=== PATIENT | female | born 1990 | race Caucasian/White ===

== ENCOUNTER → 2017-08-12 | Outpatient (CLI) | payer OTHER ==
[2017-08-12 11:09] LABS: URINE APPEARANCE CLEAR (CLEAR); URINE BILIRUBIN NEG (NEG); URINE COLOR YELLOW; URINE NITRITE NEG (NEG); URINE PH 8.5 (4.5-7.5); URINE SPECIFIC GRAVITY 1.012 (1.000-1.030); UROBILINOGEN NEG (NEG)
[2017-08-12 11:13] LABS: MANUAL MICROSCOPIC REQUIRED? NO; REVIEW REQ? NO
== END | disposition home or self-care (01) ==
LOC: C.LABSPEC 10:48
PROVIDERS: ATTEND Obstetrics & Gynecology
DX: Z34.90 Encounter for supervision of normal pregnancy, unspecified, unspecified trimester (principal)

== ENCOUNTER → 2017-08-15 | Outpatient (CLI) | payer OTHER ==
[2017-08-15 09:52] LABS: HEMATOCRIT 36.8 % (37-47)
[2017-08-17 02:35] LABS: CHLAMYDIA TRACH RNA*** NOT DETECTED (NOT DETECTED); GC (NEIS GONORRHOEAE)RNA** NOT DETECTED (NOT DETECTED)
== END | disposition home or self-care (01) ==
LOC: C.LAB1850 09:13
PROVIDERS: ATTEND Obstetrics & Gynecology
DX: O09.291 Supervision of pregnancy with other poor reproductive or obstetric history, first trimester (principal)

== ENCOUNTER → 2017-10-10 | Outpatient (CLI) | payer OTHER | END | disposition home or self-care (01) | LOC: C.LAB1850 09:30 | PROVIDERS: ATTEND Obstetrics & Gynecology | DX: O09.292 Supervision of pregnancy with other poor reproductive or obstetric history, second trimester (principal) ==

== ENCOUNTER → 2017-12-27 | Outpatient (CLI) | payer OTHER ==
[2017-12-27 12:16] LABS: HEMATOCRIT 34.5 % (37-47); HEMOGLOBIN 11.6 g/dL (12.0-16.0)
== END | disposition home or self-care (01) ==
LOC: C.LAB1850 10:39
PROVIDERS: ATTEND Obstetrics & Gynecology
DX: O09.293 Supervision of pregnancy with other poor reproductive or obstetric history, third trimester (principal)

== ENCOUNTER → 2018-05-09 | Outpatient (CLI) | payer OTHER ==
[~2018-05-09] MED LIST: CALC500C70 PO; PRENTAB26 PO
== END | disposition home or self-care (01) ==
LOC: C.PAPS 12:56
PROVIDERS: ATTEND Obstetrics & Gynecology
DX: Z39.2 Encounter for routine postpartum follow-up (principal)

== ENCOUNTER 2020-01-14 08:54 | Inpatient (IN) ==
[2020-01-28] MEDS ORDERED: CEFAZOLIN 2000MG 2,000 MG/15 ML SYR IV SCH (06:00)
[2020-01-28] MEDS ORDERED: CITRIC ACID/SODIUM CITRATE 15 ML UDC PO SCH (06:00)
[2020-01-28] MEDS ORDERED: LACTATED RINGER'S 1,000 ML IV SCH ×2 (08:15→08:30)
[2020-01-28] MEDS ORDERED: SENNA 8.6 MG TAB PO PRN (08:24)
[2020-01-28] MEDS ORDERED: BENZOCAINE 20% AER SPR 82.5 GM CAN EXT PRN (08:24)
[2020-01-28] MEDS ORDERED: SUPERCREAM 0.870% 15 GM JAR EXT PRN (08:24)
[2020-01-28] MEDS ORDERED: HYDROCORTISONE ACETATE 25 MG SUPP PR PRN (08:24)
[2020-01-28] MEDS ORDERED: DIPHTHERIA/TETANUS/PERTUSSIS 0.5 ML SYR/VIAL IM ONE (08:24)
[2020-01-28 08:29] LABS: Basophils # (auto) 0.02 K/uL (0-0.2); Basophils % (auto) 0.2 %; Eosinophils # (auto) 0.03 K/uL (0-0.5); Eosinophils % (auto) 0.3 %; Hematocrit (blood only) 34.1 % (37-47); Hemoglobin 11.4 g/dL (12.0-16.0); Immature Granulocytes # (auto) 0.01 K/uL (0.00-0.02); Immature Granulocytes % (auto) 0.1 %; Lymphocytes # (auto) 2.02 K/uL (1.2-3.4); Lymphocytes % (auto) 23.5 %; Mean Corpuscular Hemoglobin 29.7 pg (25-34); Mean Corpuscular Volume 88.8 fL (80-100); Mean Platelet Volume 11.5 fL (7.4-10.4); Monocytes # (auto) 0.68 K/uL (0.11-0.59); Monocytes % (auto) 7.9 %; Neutrophils # (auto) 5.84 K/uL (1.4-6.5); Platelet Count 161 K/uL (130-400); RDW Standard Deviation 45.9 fL (36.4-46.3); Red Blood Count 3.84 M/uL (4.2-5.4)
[2020-01-28 08:58] LABS: Mean Corpuscular Hgb Conc 33.4 g/dL (32-36)
--- NOTE | 2020-01-28 09:15 | History & Physical Bridge Note ---
Date of Service January 28, 2020 History & Physical Bridge Note I have examined the patient, reviewed the History & Physical and in the interval since the performance of the History & Physical I have noted the following changes of clinical significance: no changes noted baby taylor breech on bedside us this am, proceed with c/s
[2020-01-28] MEDS ORDERED: MoRPHine SULFATE PF 1 MG/ML 10 ML AMP/VIAL INT SPINAL ONE (09:16)
[2020-01-28] MEDS ORDERED: MoRPHine SULFATE 2 MG/ML CARP IV PRN (09:16)
[2020-01-28] MEDS ORDERED: ONDANSETRON INJ 2 MG/ML 2 ML VIAL IV PRN (09:16)
[2020-01-28] MEDS ORDERED: ePHEDrine sulfate 50 MG/ML AMP IV PRN (09:16)
[2020-01-28] MEDS ORDERED: NALOXONE HCL 0.4 MG/1 ML VIAL/CARP IV PRN (09:16)
[2020-01-28] MEDS ORDERED: METOCLOPRAMIDE HCL 20 MG in SODIUM CHLORIDE 0.9% 50 ML IV PRN (09:16)
[2020-01-28] MEDS ORDERED: NALOXONE HCL 1 MG in SODIUM CHLORIDE 0.9% 1000ML 1,000 ML IV PRN (09:16)
[2020-01-28] MEDS ORDERED: NALOXONE HCL 0.08 MG in SYRINGE 1.8 ML IV PRN (09:16)
[2020-01-28] MEDS ORDERED: MEPERIDINE HCL 25 MG/ML CARP/VIAL IV PRN (09:16)
[2020-01-28] MEDS ORDERED: LACTATED RINGER'S 500 ML IV PRN (09:16)
[2020-01-28] MEDS ORDERED: PROMETHAZINE HCL 25 MG in SODIUM CHLORIDE 0.9% 50 ML IV PRN (09:16)
[2020-01-28] MEDS ORDERED: SODIUM CHLORIDE 0.9% 1000ML 1,000 ML IV SCH (09:30)
[2020-01-28] MEDS ORDERED: DC INTRASPINAL MORPHINE SCH (09:30)
[2020-01-28] MEDS ORDERED: NO NARCOTICS OR SEDATIVES SCH (09:30)
[2020-01-28] MEDS ORDERED: OXYTOCIN 10 UNITS/ML VIAL ONE (10:20)
[2020-01-28] MEDS ORDERED: ONDANSETRON INJ 2 MG/ML 2 ML VIAL ONE (10:27)
[2020-01-28] MEDS ORDERED: DiphenhydrAMINE HCL 50 MG/ML VIAL ONE (10:34)
--- NOTE | 2020-01-28 10:41 | Post Operative Brief Note ---
PG Immediate Post Op with CF Date of Surgery January 28, 2020 Pre & Post Diagnosis Operation Date: 01/28/20 09:10 Pre-Op Diagnosis: 39 weeks gestation, persistent breech presentation, failed external cephalic version Post-Op Diagnosis: same I identified the patient and participated in the time-out.: Yes Procedure Operation Date: 01/28/20 09:10 Actual Procedures Primary Low Transverse Section Surgeon Quin Gastelum MD, FACOG French Drawer Dr. Pineda Estimated Blood Loss 700 Findings Consistent with Post-Op Diagnosis (viable female infant, normal uterus, tubes and ovaries bilaterally) Fluids 2000 Specimens Specimen Description: cord blood placenta--hold Drains Davis Catheter Anesthesia Type Spinal Complications none Disposition Accompanied Patient To Recovery: No Disposition: L&D
--- NOTE | 2020-01-28 10:52 | Operative Report ---
PG Post Operative Report Pre & Post Diagnosis Operation Date: 01/28/20 09:10 Pre-Op Diagnosis: 39 week intrauterine Persistent breech presentation Failed external cephalic version Post-Op Diagnosis: same I identified the patient and participated in the time-out.: Yes Procedure Operation Date: 01/28/20 09:10 Actual Procedures Primary Low Transverse Section Surgeon Quin Gastelum MD, FACOG Member Of Technical Staff Dr. Pineda Estimated Blood Loss 700 Findings Consistent with Post-Op Diagnosis (viable female infant, apgars 8,9. normal uterus tubes and ovaries bilaterally. ) Specimens cord blood Drains deras Anesthesia Type Spinal Complications none Disposition Accompanied Patient To Recovery: No Disposition: L&D Indications 29yo at 39wks ega presented to L&D for planned section for above listed indications. Consents were signed and patient was ready to proceed. Description of Procedure The patient was taken to the operating room and identified. After adequate anesthesia was obtained, she was placed in the supine position with a leftward tilt on the operating table and prepped and draped in the usual sterile fashion. A deras catheter had already been placed. The knife was used to create a Pfannensteil skin incision that was carried down to the underlying layer of fascia. The fascia was nicked in the midline and this opening was extended laterally using Mota scissors. Richa clamps were placed on the superior and inferior aspect of the fascial incision tenting it upward and the underlying rectus muscles were dissected off the overlying fascia both sharply and bluntly using Mota scissors. The rectus muscles were bluntly in the midline. The peritoneal cavity was bluntly entered into. This opening was stretched. The bladder blade was placed. The vesicouterine peritoneum was elevated and opened up into and the bladder flap was created digitally and bladder blade was replaced. The knife was used to create a hysterotomy and this opening was stretched. The operators hand was placed through the hysterotomy and the bladder blade was removed. The buttocks was elevated and with fundal pressure the buttocks was delivered. The body was delivered to the level of the shoulders and the arms were swept across the anterior chest. The head was flexed and delivered. The mouth and nose were bulb suctioned and baby was dried. The cord was clamped after 30sec of life per maternal request and then cut and the infant was handed off to the awaiting pediatricians. Cord blood was obtained. The placenta was manually expressed. The uterus was exteriorized and cleared of all clots and debris. Dilute IV Pitocin was begun. The uterine tone was improving. The hysterotomy was closed in a running interlocking fashion using 0 Vicryl followed by a second imbricating layer of 0 Vicryl. Bleeding at the midline and to the right hysterotomy was noted and 2 figure of eight sutures of 2-0 vicryl were placed for excellent hemostasis. The hysterotomy was hemostatic. The pelvis was irrigated. The uterus was returned to the abdomen. The gutters were cleared of all clots and debris. The hysterotomy was reinspected and noted to be hemostatic. The fascia was then closed in running fashion using 0 Vicryl. The subcutaneous fat was copiously irrigated and reapproximated using 2-0 chromic. The skin was closed in a subcuticular fashion using 4-0 Vicryl. At this point the procedure was terminated. The patient was transferred to the recovery room in stable condition. All sponge, lap and needle counts are correct x2. I attest to the content of the Intraoperative Record and any orders documented therein. Any exceptions are noted below.
--- NOTE | 2020-01-28 11:31 | Anesthesiology Progress Note ---
Date of Service January 28, 2020 Anesthesia Post Procedure Vital Signs Vital Signs: Temp Pulse Resp BP Pulse Ox 01/28/20 11:28 69 100 01/28/20 11:25 70 18 114/57 L 01/28/20 11:23 78 100 01/28/20 11:18 67 100 01/28/20 11:15 18 01/28/20 11:14 74 124/66 01/28/20 11:13 75 100 01/28/20 11:08 74 100 01/28/20 11:05 20 01/28/20 11:04 69 116/64 01/28/20 11:03 73 100 01/28/20 10:58 74 99 01/28/20 10:55 18 01/28/20 10:54 95 H 119/63 01/28/20 10:53 79 98 01/28/20 10:48 100 H 97 01/28/20 10:45 36.5 C 01/28/20 10:44 94 H 120/60 01/28/20 10:43 95 H 97 01/28/20 07:50 36.8 C 01/28/20 07:04 36.8 C 01/28/20 07:03 74 121/75 Pain Intensity Lower Abdomen: Pain Intensity: 6 Transfer of Care Handoff Completed per policy Notes Mental Status: alert / awake / arousable Patient Amnestic to Procedure: Yes Nausea / Vomiting: adequately controlled Pain: adequately controlled Airway Patency, RR, SpO2: stable & adequate BP & HR: stable & adequate Hydration State: stable & adequate Neuraxial Anesthesia: was administered and sensory block is resolving Anesthetic Complications: no major complications apparent and Pt Satisfied with anesthetic care
[2020-01-28] MEDS ORDERED: fentaNYL citrate 100 MCG/2 ML VIAL IV ONE (12:20)
[2020-01-28] MEDS ORDERED: MoRPHine SULFATE PF 1 MG/ML 10 ML AMP/VIAL EPI ONE (12:20)
[2020-01-28] MEDS ORDERED: OXYTOCIN 10 UNITS/ML VIAL IV ONE ×2 (12:20)
[2020-01-28] MEDS ORDERED: METOCLOPRAMIDE HCL INJ 5 MG/ML 2 ML VIAL IV ONE (12:20)
[2020-01-28] MEDS ORDERED: ePHEDrine sulfate 50 MG/ML AMP IV ONE (12:20)
[2020-01-28] MEDS ORDERED: ONDANSETRON INJ 2 MG/ML 2 ML VIAL IV ONE (12:20)
[2020-01-28] MEDS ORDERED: PHENYLEPHRINE HCL 10 MG/ML VIAL IV ONE (12:20)
[2020-01-28] MEDS: KETOROLAC 30 MG/ML VIAL IV PRN ×2 (12:24→18:06)
[2020-01-28] MEDS: OXYTOCIN 20 UNITS in LACTATED RINGER'S 1,000 ML IV SCH ×2 (13:42→22:14)
[2020-01-28] MEDS: SIMETHICONE 80 MG CHEW PO SCH ×3 (14:05→20:40)
[2020-01-28] MEDS: DiphenhydrAMINE HCL 50 MG/ML VIAL IV PRN ×2 (17:05→23:44)
[2020-01-28] MEDS: NALBUPHINE HCL INJ 10 MG/ML AMP IV PRN ×2 (18:59→19:28)
[2020-01-28] MEDS: DOCUSATE SODIUM 100 MG CAP PO SCH (20:40)
[2020-01-29] MEDS: KETOROLAC 30 MG/ML VIAL IV PRN (02:12)
[2020-01-29] MEDS: NALBUPHINE HCL INJ 10 MG/ML AMP IV PRN (02:13)
[2020-01-29] MEDS ORDERED: DiphenhydrAMINE HCL 50 MG/ML VIAL IV PRN (03:16)
[2020-01-29] MEDS ORDERED: MEPERIDINE HCL 50 MG/ML CARP IV PRN (03:16)
[2020-01-29] MEDS ORDERED: ONDANSETRON INJ 2 MG/ML 2 ML VIAL IV PRN (03:16)
[2020-01-29] MEDS ORDERED: KETOROLAC 30 MG/ML VIAL IV PRN (03:16)
[2020-01-29] MEDS ORDERED: PROMETHAZINE HCL 25 MG in SODIUM CHLORIDE 0.9% 50 ML IV PRN (03:16)
[2020-01-29 05:38] LABS: Basophils # (auto) 0.01 K/uL (0-0.2); Basophils % (auto) 0.1 %; Eosinophils # (auto) 0.01 K/uL (0-0.5); Eosinophils % (auto) 0.1 %; Hemoglobin 11.3 g/dL (12.0-16.0); Immature Granulocytes # (auto) 0.05 K/uL (0.00-0.02); Immature Granulocytes % (auto) 0.4 %; Lymphocytes # (auto) 1.62 K/uL (1.2-3.4); Lymphocytes % (auto) 11.4 %; Mean Corpuscular Hemoglobin 29.5 pg (25-34); Mean Corpuscular Hgb Conc 34.2 g/dL (32-36); Mean Corpuscular Volume 86.2 fL (80-100); Monocytes # (auto) 0.92 K/uL (0.11-0.59); Monocytes % (auto) 6.5 %; Neutrophils # (auto) 11.54 K/uL (1.4-6.5); Neutrophils % (auto) 81.5 %; Platelet Count 145 K/uL (130-400); RDW Coefficient of Variation 13.4 % (11.5-14.5); RDW Standard Deviation 42.3 fL (36.4-46.3); Red Blood Count 3.83 M/uL (4.2-5.4); White Blood Count 14.15 K/uL (4.8-10.8)
--- NOTE | 2020-01-29 07:49 | Obstetrical Progress Note ---
Date of Service January 29, 2020 Assessment & Plan (1) S/P primary low transverse : stable, hgb noted. routine care. adv diet, ambulate, support breast feeding. oral pain meds for pain control. Day #:: 1 Subjective Ambulation: ambulating normally Voiding: no voiding problems Passing Gas:: Yes Diet Tolerance:: clear liquids Lochia:: Small Feeding Type:: breast feeding having some pain this am, awaiting oral pain meds. Physical Exam Constitutional WD/WN, vitals as above Respiratory normal respiratory effort, lungs clear to auscultation Cardiovascular Rate/Rhythm: regular rate and regular rhythm Gastrointestinal (Abdomen) Inspection/Auscultation: abdomen normal to inspection, normal bowel sounds and + abdominal surgical incision (c/d/i) Percussion/Palpation: + abdomen tender (appropriate) and abdomen soft Fundus firm 1cm down Musculoskeletal nt calves no edema Neurologic grossly normal Psychiatric A+Ox3, euthymic affect Results & Data Vital Signs (Past 12 Hours) Vital Signs Temp Pulse Resp BP Pulse Ox Pulse Ox 01/29/20 04:10 98.1 F 85 18 117/71 97 01/29/20 03:10 20 100 01/29/20 02:30 20 100 01/29/20 01:30 16 97 01/29/20 00:30 16 98 01/28/20 23:30 98.6 F 96 H 20 126/78 100 100 01/28/20 22:32 18 97 01/28/20 21:45 18 97 01/28/20 20:15 98.6 F 74 20 129/67 97 99
[2020-01-29] MEDS ORDERED: ACETAMINOPHEN 325 MG TAB PO PRN (07:50)
[2020-01-29] MEDS: DOCUSATE SODIUM 100 MG CAP PO SCH ×2 (07:52→20:18)
[2020-01-29] MEDS: OXYCODONE/ACETAMINOPHEN 5mg/325mg TAB PO PRN ×4 (07:52→20:18)
[2020-01-29] MEDS: PRENATAL VITAMIN 1 TAB PO SCH (07:52)
[2020-01-29] MEDS: SIMETHICONE 80 MG CHEW PO SCH ×4 (07:52→20:18)
[2020-01-29] MEDS: FERROUS SULFATE 325 MG TAB PO SCH (07:52)
[2020-01-29] MEDS: IBUPROFEN 600 MG TAB PO PRN ×4 (07:52→20:18)
--- NOTE | 2020-01-29 14:39 | Electrocardiogram Report ---
Test Reason : Blood Pressure : / mmHG Vent. Rate : 087 BPM Atrial Rate : 087 BPM P-R Int : 152 ms QRS Dur : 078 ms QT Int : 356 ms P-R-T Axes : 078 072 057 degrees QTc Int : 428 ms Poor data quality, interpretation may be adversely affected Normal sinus rhythm Normal ECG No previous ECGs available Confirmed by Maximilian Velazquez ([id number]) on 01/29/2020 2:39:07 PM Referred By: Quin Gastelum Confirmed By:Maximilian Velazquez
[2020-01-30] MEDS: OXYCODONE/ACETAMINOPHEN 5mg/325mg TAB PO PRN ×3 (00:16→09:55)
[2020-01-30] MEDS: IBUPROFEN 600 MG TAB PO PRN ×3 (00:16→09:56)
[2020-01-30 07:00] LABS: Hematocrit (blood only) 33.1 % (37-47); Hemoglobin 11.2 g/dL (12.0-16.0)
--- NOTE | 2020-01-30 07:21 | Obstetrical Progress Note ---
Date of Service January 30, 2020 Assessment & Plan (1) S/P primary low transverse : Postoperative from section patient meets discharge criteria as she is ambulating well tolerating an oral diet has minimal bleeding and no extremity pain. Discharge instructions were reviewed and prescriptions were sent to her pharmacy of choice patient advised to call with any concerns and follow-up in the office discussed Subjective Ambulation: ambulating normally Voiding: no voiding problems Passing Gas:: Yes Diet Tolerance:: regular diet Lochia:: Small Current Pain Level(1-10): 1 doing well Physical Exam Constitutional WD/WN, vitals as above Gastrointestinal (Abdomen) normal bowel sounds, soft, nontender, no hepatosplenomegaly (incision cdi. ext neg) Results & Data Vital Signs (Past 12 Hours) Vital Signs Temp Pulse Resp BP Pulse Ox 01/29/20 23:30 98.1 F 85 18 113/69 98 01/29/20 20:25 98.4 F 80 18 118/74 97
[2020-01-30] MEDS: DOCUSATE SODIUM 100 MG CAP PO SCH (07:50)
[2020-01-30] MEDS: PRENATAL VITAMIN 1 TAB PO SCH (07:50)
[2020-01-30] MEDS: FERROUS SULFATE 325 MG TAB PO SCH (07:50)
[2020-01-30] MEDS: SIMETHICONE 80 MG CHEW PO SCH (07:50)
--- NOTE | 2020-01-31 14:55 | Discharge Summary ---
Date of Service Day of admission: January 28, 2020 Day of discharge: January 30, 2020 Admission HPI Per Admitting Provider Admission diagnoses: 39 week ega, persistent breech presentation, failed external cephalic version Discharge diagnoses: same Discharge Data Consultations 01/28/20 08:06 Consult Anesthesiology Stat Procedures Performed Operation Date: 01/28/20 09:10 Actual Procedures Primary Low Transverse Section Hospital Course (1) 39 weeks gestation of : (2) Breech presentation: (3) Failed external cephalic version: The patient was admitted and underwent the above stated procedure without incident. She had an estimated blood loss of 700cc. She had a postop hemoglobin of 11.2. She had an unremarkable postop recovery. She was voiding, ambulating, and tolerating a regular diet and had her pain well controlled on oral pain medications, such that on her postop day #2 she was ready to go home. Instructions were reviewed and given, plan for 6wk appointment reviewed and appropriate prescriptions sent to pharmacy. Coding Level of Care Code None Diagnoses 39 weeks gestation of Z3A.39 Breech presentation O32.1XX0 Failed external cephalic version O32.9XX0
== END 2020-01-30 12:21 | disposition home or self-care (01) | DRG 788 ==
LOC: 4S1 01-28 06:39 → 4S2 01-28 14:09